=== PATIENT | male | born 1965 | race Caucasian/White ===

== ENCOUNTER 2016-04-09 08:26 | Day surgery (SDC) | payer BC ==
[~2016-04-09 08:26] MED LIST: AMLO5TAB2 PO; ASPI325T4 PO; ATOR10TA60 PO; CEFTRIAXONE 1GM IVPB FOR OMNI 50 ML IV PRN; CHOL10003 PO; EMPA25TA PO; FENTANYL PF 100 MCG/2 ML VIAL. IV PRN; HYDROMORPHONE 2 MG/ML VIAL. IV PRN; IV RINGERS,LACTATED 1000ML 1,000 ML IV SCH; LIDOCAINE 1% 1 ML SYRINGE. ID PRN; LISI-338 PO; METF10002 PO; MORPHINE SULFATE 2 MG/ML DISP.SYRIN. IV PRN; MULT-208 PO; ONDANSETRON PF 4 MG/2 ML VIAL. IV PRN; PROCHLORPERAZINE 10 MG/2 ML VIAL. IV PRN
[2016-04-09] MEDS ORDERED: ONDANSETRON PF 4 MG/2 ML VIAL. ONE (08:59)
[2016-04-09] MEDS ORDERED: LIDOCAINE 2% 100 MG/5 ML DISP.SYRIN. ONE ×2 (08:59→10:51)
[2016-04-09] MEDS ORDERED: PROPOFOL 20 ML IV ONE ×2 (08:59→10:23)
[2016-04-09] MEDS ORDERED: DEXAMETHASONE SOD PHOS 20 MG/5 ML VIAL. ONE (08:59)
[2016-04-09 09:07] LABS: BASO # 0.2 x10^3/uL (0.0-0.2); BASO % 1 % (0-3); EOS % 2 % (0-3); HEMATOCRIT 40.7 % (39.0-53.0); HEMOGLOBIN 13.6 g/dL (13.0-17.5); LYMPH % 21 % (24-48); MEAN CORPUSCULAR HEMOGLOBIN 30 pg (25-35); MEAN CORPUSCULAR HGB CONC 33 g/dL (31-37); MEAN CORPUSCULAR VOLUME 90 fL (79-100); MONO % 6 % (0-9); NEUT % 70 % (31-73); PLATELET COUNT 537 x10^3/uL (140-400); RED BLOOD COUNT 4.54 x10^6/uL (4.30-5.70); RED CELL DISTRIBUTION WIDTH 14.1 % (11.5-14.5); WHITE BLOOD COUNT 14.8 x10^3/uL (4.0-11.0)
[2016-04-09 09:16] LABS: INR 1.1 (0.8-1.1); PROTHROMBIN TIME PATIENT 13.2 SEC (11.7-14.0)
[2016-04-09 09:17] LABS: CALCIUM 8.8 mg/dL (8.5-10.1); CREATININE 0.8 mg/dL (0.7-1.3); GFR 101.5; POTASSIUM 4.2 mmol/L (3.5-5.1)
[2016-04-09] MEDS ORDERED: BUPIVACAINE-EPI 0.25%-1:200000 50 ML VIAL. ONE (09:38)
[2016-04-09] MEDS ORDERED: NEOMY/BACITR/POLYMYXIN OINT PACKET. TP ONE (09:38)
[2016-04-09] MEDS ORDERED: FENTANYL PF 100 MCG/2 ML VIAL. ONE (09:56)
[2016-04-09 10:14] LABS: BILIRUBIN,URINE NEGATIVE (NEG); GLUCOSE,URINE 100 mg/dL (NEG); NITRITE,URINE NEGATIVE (NEG); PROTEIN,URINE NEGATIVE (NEG-TRACE); UROBILINOGEN,URINE 0.2 mg/dL (0.2 mg/dL)
[2016-04-09 10:35] LABS: BACTERIA,URINE 0 /HPF (0-FEW); RBC,URINE 0 /HPF (0-2); SQUAMOUS EPITHELIAL CELL,UR OCC /LPF; WBC,URINE OCC /HPF (0-4)
[2016-04-09] MEDS ORDERED: SUCCINYLCHOLINE 200 MG/10 ML VIAL. ONE (10:46)
--- NOTE | 2016-04-09 11:15 | DISCH ---
DISCHARGE INSTRUCTIONS Condition on Discharge Condition on Discharge: Stable Activity After Discharge Activity Instructions for Disc: Activity as tolerated Driving Instructions after Dis: Do not drive today Diet after Discharge Diet after Discharge: Regular Wound Incision Care Wound/Incision Care: Change dressing Other wound/incision instructi: may shower, change dressing when gets damp, etc Contacting the DRFiona after DC Call your doctor for: Concerns you may have Follow-Up Follow up with: f/u with Dr Siegel next week to remove drains and packing JUN SIEGEL DO Apr 09, 2016 11:15
--- NOTE | 2016-04-09 11:19 | PDOC ---
BRIEF OPERATIVE NOTE Date: Apr 09, 2016 Pre-Op Diagnosis Scrotal Abscess, Hydradenitis Post-Op Diagnosis same Procedure Performed I&D scrotal abscess Surgeon Flores Anesthesia Type: General Blood Loss 50cc Specimens Obtained drainage sent for C&S Findings same Complications none Additional Remarks Tolerated well JUN SIEGEL DO Apr 09, 2016 11:19
[2016-04-09] MEDS ORDERED: HYDR-971 PO (11:23)
[2016-04-09] MEDS ORDERED: DOXY100C2 PO (11:24)
[2016-04-09] MEDS ORDERED: HYDROCODONE/APAP 5/325MG TABLET. PO ONE (11:45)
[2016-04-09 12:15] VITALS: BP 154/71
--- NOTE | 2016-04-09 19:31 | OP ---
DATE OF SURGERY: 04/09/2016 PREOPERATIVE DIAGNOSES: Scrotal abscess, hidradenitis. POSTOPERATIVE DIAGNOSES: Scrotal abscess, hidradenitis. PROCEDURE: Incision and drainage of a scrotal abscess and left inguinal drainage. SURGEON: Jun Siegel DO ANESTHESIA: General. DRAINS: Iodoform packing, 2 small Huron scrotal drains. INDICATIONS AND JUDGMENT: This is a 50-year-old male, obese, with a long history of hidradenitis of the scrotum, perineum and inguinal regions. The patient has had a history of occasional scrotal abscesses. He was actually hospitalized in 11/2015 for antibiotic therapy. The patient has been followed on an outpatient basis. He continues to have scrotal drainage and inguinal drainage from his hidradenitis. There was a palpable mass superior to the left testicle. Ultrasound studies revealed possible collection of pus. Therefore, it was felt the patient should undergo scrotal exploration and establish drainage. This was explained to the patient. He appeared to understand and was agreeable. DESCRIPTION OF PROCEDURE: The patient was preloaded with IV Rocephin, taken to the operating room, placed on the operating room table, given a general anesthetic and then placed in a frog leg position exposing the perineum, scrotum and inguinal areas. He had some active drainage from this mass in the upper left scrotum and this was cultured and sent to lab. The patient was then prepped and draped in sterile fashion. An incision was then made over this mass and then using blunt and sharp dissection, this area was opened and drained. Following that, a 1/4-inch iodoform packing was placed into the defect as well as a small Hiren drain and this was brought out through a stab wound incision inferior to the incision. The defect was loosely closed with 0 interrupted Vicryl. Attention was then directed to the left inguinal area just adjacent to the scrotum. There was some drainage from this area. Therefore, an incision was made and then using sharp and blunt dissection, this area was opened. It was drained satisfactorily. A finger was placed and opened up some of the areas of inflammation. I then tacked this with a 1/4-inch iodoform gauze and also brought a Huron drain out inferior to this incision and in left inguinal area. Once the packing had been placed and a drain had been placed, I loosely closed the incision with interrupted Vicryl sutures. Sponge and needle counts were correct. Therefore, a sterile dressing was applied, 4 x 4s, ABD and ____ pants. The patient was sent to recovery room in satisfactory condition. He will be sent home on doxycycline antibiotic and Lortab 5 as needed for pain. He was told he could shower. He will follow up with me next week to remove the packing and the drains. JUN SIEGEL DO DR: JIA/mark JOB#: [id number] / [id number]
== END 2016-04-09 12:36 | disposition home or self-care (01) ==
LOC: SURG 08:26
PROVIDERS: ATTEND Urology
DX: L73.2 Hidradenitis suppurativa (principal); N49.2 Inflammatory disorders of scrotum; E66.9 Obesity, unspecified; I10 Essential (primary) hypertension; M19.90 Unspecified osteoarthritis, unspecified site; E11.9 Type 2 diabetes mellitus without complications; F17.200 Nicotine dependence, unspecified, uncomplicated
CPT/HCPCS: 36415; 55100; 80048; 81001; 82947; 85027; 85610; 85730; 87205; J0330; J0690; J2405; J2704; J3010; 87071; 87075; J1100

== ENCOUNTER 2019-10-23 19:18 | Emergency (ER) | payer BC ==
[~2019-10-23] VITALS: Ht 182.9 cm; Wt 129.5 kg
[~2019-10-23 19:18] MED LIST changes: +AMLO5TAB10 PO; -AMLO5TAB2 PO; -ASPI325T4 PO; +ASPI325T8 PO; -CEFTRIAXONE 1GM IVPB FOR OMNI 50 ML IV PRN; +DOXY100C2 PO; -FENTANYL PF 100 MCG/2 ML VIAL. IV PRN; +HYDR-3164 PO; -HYDROMORPHONE 2 MG/ML VIAL. IV PRN; -IV RINGERS,LACTATED 1000ML 1,000 ML IV SCH; -LIDOCAINE 1% 1 ML SYRINGE. ID PRN; -METF10002 PO; +METF10007 PO; -MORPHINE SULFATE 2 MG/ML DISP.SYRIN. IV PRN; -ONDANSETRON PF 4 MG/2 ML VIAL. IV PRN; -PROCHLORPERAZINE 10 MG/2 ML VIAL. IV PRN
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
[2019-10-23 19:59] LABS: BASO # 0.1 x10^3/uL (0.0-0.2); BASO % 0 % (0-3); EOS # 0.1 x10^3/uL (0.0-0.7); EOS % 0 % (0-3); HEMATOCRIT 44.2 % (39.0-53.0); HEMOGLOBIN 14.8 g/dL (13.0-17.5); LYMPH # 2.5 x10^3/uL (1.0-4.8); LYMPH % 9 % (24-48); MEAN CORPUSCULAR HEMOGLOBIN 30 pg (25-35); MEAN CORPUSCULAR HGB CONC 34 g/dL (31-37); MEAN CORPUSCULAR VOLUME 90 fL (79-100); MONO # 1.5 x10^3/uL (0.0-1.1); MONO % 6 % (0-9); NEUT % 85 % (31-73); PLATELET COUNT 625 x10^3/uL (140-400); RED BLOOD COUNT 4.91 x10^6/uL (4.30-5.70); RED CELL DISTRIBUTION WIDTH 14.5 % (11.5-14.5); WHITE BLOOD COUNT 27.1 x10^3/uL (4.0-11.0)
[2019-10-23] MEDS ORDERED: ONDANSETRON PF 4 MG/2 ML VIAL. IVP ONE (20:00)
[2019-10-23] MEDS ORDERED: IV NORMAL SALINE 1000ML BAG 1,000 ML IV ONE (20:00)
[2019-10-23] MEDS ORDERED: HYDROmorphone 2 MG/ML VIAL IV ONE ×2 (20:00→21:30)
[2019-10-23 20:07] LABS: CALCIUM 9.3 mg/dL (8.5-10.1); CREATININE 0.9 mg/dL (0.7-1.3); GFR 87.3; POTASSIUM 3.2 mmol/L (3.5-5.1); PROTHROMBIN TIME PATIENT 13.4 SEC (11.7-14.0)
[2019-10-23 20:12] LABS: ALBUMIN 3.2 g/dL (3.4-5.0); ALBUMIN/GLOBULIN RATIO 0.6 (1.0-1.7); TOTAL BILIRUBIN 0.4 mg/dL (0.2-1.0); TOTAL PROTEIN 8.7 g/dL (6.4-8.2)
[2019-10-23] MEDS ORDERED: IOHEXOL 350 MG/ML 100 ML VIAL. IV ONE (20:15)
[2019-10-23] MEDS ORDERED: CONTRAST GIVEN. MC PRN (20:15)
[2019-10-23 20:23] LABS: % BANDS 2 % (0-9); % LYMPHS 7 % (24-48); % MONOS 2 % (0-10); % SEGS 89 % (35-66)
[2019-10-23 20:24] LABS: PLT ESTIMATE ADEQUATE (ADEQUATE)
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
[2019-10-23 21:07] LABS: BILIRUBIN,URINE NEGATIVE (NEG); CLARITY,URINE TURBID; COLOR,URINE AMBER; NITRITE,URINE NEGATIVE (NEG); PROTEIN,URINE 30 mg/dL (NEG-TRACE); UROBILINOGEN,URINE 0.2 mg/dL (0.2 mg/dL)
[2019-10-23 21:13] LABS: RBC,URINE TNTC /HPF (0-2)
[2019-10-23 21:14] LABS: HYALINE CASTS, URINE MODERATE /HPF
[2019-10-23 21:15] LABS: BACTERIA,URINE 0 /HPF (0-FEW)
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
[2019-10-23 23:30] VITALS: BP 177/95
--- NOTE | 2019-10-24 08:07 | EKG ---
[facility] [address] [place] [address] Test Date: 2019-10-23 Test Time: 19:26:21 Pat Name: AIDEN FOSTER Department: Room: Gender: M Mobile Mechanic: : 1965 Requested By: CRYSTAL MAGUIRE Order Number: [id number] Reading MD: Measurements Intervals [place] Rate: 69 P: -21 WI: 152 QRS: 33 QRSD: 114 T: 23 QT: 382 QTc: 415 Interpretive Statements SINUS RHYTHM LOW LIMB LEAD VOLTAGE NO SPECIFIC ECG ABNORMALITIES RI6.01 No previous ECG available for comparison
== END 2019-10-23 23:43 | disposition short-term general hospital (02) ==
LOC: ER 19:18
DX: S22.42XA Multiple fractures of ribs, left side, initial encounter for closed fracture (principal); S36.892A Contusion of other intra-abdominal organs, initial encounter; S40.012A Contusion of left shoulder, initial encounter; M54.5 Low back pain; E11.9 Type 2 diabetes mellitus without complications; E78.00 Pure hypercholesterolemia, unspecified; I10 Essential (primary) hypertension; F17.200 Nicotine dependence, unspecified, uncomplicated; Z90.81 Acquired absence of spleen; W28.XXXA Contact with powered lawn mower, initial encounter; Y93.I9 Activity, other involving external motion; Y92.89 Other specified places as the place of occurrence of the external cause; Y99.8 Other external cause status
CPT/HCPCS: 36415; 71275; 73030; 74177; 80053; 81001; 83690; 85007; 85025; 85610; 85730; 87086; 93005; 96361; 96374; 96375; 96376; 99291; G0480; J1170; J2405; J7030; Q9967; 99285-25